=== PATIENT | male | born 1990 | race Caucasian/White ===

== ENCOUNTER 2018-05-28 16:04 | Emergency (ER) | payer MEDICAID ==
[~2018-05-28] VITALS: Ht 177.8 cm; Wt 112.9 kg
[2018-05-28 16:33] VITALS: Ht 177.8 cm; Wt 112.9 kg
[2018-05-28 19:55] VITALS: BP 116/58
== END 2018-05-28 19:55 | disposition home or self-care (01) ==
LOC: ED 16:04
DX: L03.317 Cellulitis of buttock (principal); Z98.890 Other specified postprocedural states
CPT/HCPCS: J0696; J2001; J2270; Q0162